=== PATIENT | female | born 1980 | race Caucasian/White ===

== ENCOUNTER 2019-11-06 19:13 | Emergency (ER) | payer SELFPAY ==
[2019-11-06] MEDS ORDERED: NA CHLORIDE 0.9% 1,000 ML ONE (20:30)
[2019-11-06] MEDS ORDERED: METOCLOPRAMIDE 10 MG/2mL INJ ONE (20:30)
[2019-11-06] MEDS ORDERED: DIPHENHYDRAMINE 50 MG/ML VIAL ONE (20:30)
[2019-11-06] MEDS ORDERED: dexAMETHasone 4 MG/ML VIAL ONE (21:06)
[2019-11-06] MEDS ORDERED: HALOPERIDOL LACT 5 MG/ML INJ ONE (21:07)
--- NOTE | 2019-11-06 21:42 | ER ---
Nurse's Notes [facility] Name: Denise Aguirre Age: 39 yrs Sex: Female : 1980 Arrival Date: 11/06/2019 Time: 19:17 Bed 19 Private MD: Diagnosis: Headache Presentation: 11/05 19:20 Chief complaint: Patient states: Migraine PAUL with nausea started today at noon. ll1 Coronavirus screen: Client denies travel out of the [place] in the last 14 days. At this time, the client does not indicate any symptoms associated with coronavirus-19. Ebola Screen: Patient denies travel to an Ebola-affected area in the 21 days before illness onset. Initial Sepsis Screen: Does the patient meet any 2 criteria? HR > 90 bpm. No. Patient's initial sepsis screen is negative. Risk Assessment: Do you want to hurt yourself or someone else? Patient reports no desire to harm self or others. Onset of symptoms was November 06, 2019. 19:20 Method Of Arrival: Ambulatory [facility] 19:20 Acuity: LEONARD 3 ll1 20:04 Initial Sepsis Screen: Does the patient have a suspected source of infection? No. wh Patient's initial sepsis screen is negative. EPILEPSY PHYSICIAN: 20:05 LMP 11/06/2019 Historical: - Allergies: 19:22 "No narcotics"; ll1 - PMHx: 19:22 Migraines; ll1 - PSHx: 19:22 Appendectomy; ll1 - Immunization history:: Flu vaccine is not up to date. - Social history:: Smoking status: Patient reports the use of cigarette tobacco products, smokes one-half pack cigarettes per day. Screenin:04 Abuse screen: Denies threats or abuse. Denies injuries from another. Nutritional screening: No deficits noted. Tuberculosis screening: No symptoms or risk factors identified. Fall Risk None identified. Assessment: 19:30 General: Appears in no apparent distress. Behavior is calm, cooperative, appropriate for age. Pain: Complains of pain in top of head and forehead Pain does not radiate. Pain currently is 9 out of 10 on a pain scale. Pain began 4 hours ago. Neuro: Level of Consciousness is awake, alert, obeys commands, Oriented to person, place, time, situation, Appropriate for age. Neuro: Reports headache frontal area. Cardiovascular: Capillary refill < 3 seconds. Respiratory: Airway is patent Respiratory effort is even, unlabored, Respiratory pattern is regular, symmetrical. GI: Abdomen is flat, non-distended. : No signs and/or symptoms were reported regarding the genitourinary system. EENT: No signs and/or symptoms were reported regarding the EENT system. Derm: Skin is intact, is healthy with good turgor, Skin is pink, warm \\T\\ dry. normal. Musculoskeletal: Circulation, motion, and sensation intact. 21:00 Reassessment: Patient appears in no apparent distress at this time. No changes from previously documented assessment. Patient and/or family updated on plan of care and expected duration. Pain level reassessed. Patient is alert, oriented x 3, equal unlabored respirations, skin warm/dry/pink. 22:00 Reassessment: Patient appears in no apparent distress at this time. Patient and/or family updated on plan of care and expected duration. Pain level reassessed. Patient is alert, oriented x 3, equal unlabored respirations, skin warm/dry/pink. Patient states feeling better. Patient states symptoms have improved. Vital Signs: 19:20 BP 108 / 69; Pulse 91; Resp 17; Temp 98.0; Pulse Ox 98% ; Pain 6/10; ll1 20:04 BP 102 / 72; Pulse 84; Resp 18; Pulse Ox 99% on R/A; 22:00 BP 107 / 76; Pulse 85; Resp 18; Pulse Ox 100% on R/A; [place] Coma Score: 21:39 Eye Response: spontaneous(4). Verbal Response: oriented(5). Motor Response: obeys mh7 commands(6). Total: 15. ED Course: 19:17 Patient arrived in ED. cl3 19:21 Triage completed. ll1 19:22 Arm band placed on Patient placed in an exam room, on a stretcher. ll1 19:27 Scout Stokes is Primary Nurse. 19:41 Tao Murcia MD is Attending Physician. mh7 20:04 Patient has correct armband on for positive identification. Bed in low position. Call light in reach. Side rails up X 1. Pulse ox on. NIBP on. 20:25 Inserted saline lock: 20 gauge in left upper arm, using aseptic technique. rr5 21:41 Doniphan, Peter, MD is Referral Physician. [facility] 21:52 IV discontinued, intact, bleeding controlled, No redness/swelling at site. Pressure ll1 dressing applied. 22:08 No provider procedures requiring assistance completed. Administered Medications: 20:30 Drug: NS 0.9% 1000 ml Route: IV; Rate: 1000 ml; Site: left upper arm; 22:09 Follow up: Response: No adverse reaction; IV Status: Completed infusion 20:30 Drug: Reglan 10 mg {Note: MIxed with NS 1 liter.} Route: IVP; Site: left upper arm; 22:08 Follow up: Response: No adverse reaction; Marked relief of symptoms 20:35 Drug: Benadryl 50 mg Route: IVP; Site: left upper arm; 22:08 Follow up: Response: No adverse reaction; Marked relief of symptoms 21:06 Drug: Decadron - Dexamethasone 10 mg Route: IVP; Site: left upper arm; 22:08 Follow up: Response: No adverse reaction Outcome: 21:42 Discharge ordered by . [facility] 22:08 Discharged to home ambulatory. 22:08 Condition: stable 22:08 Discharge instructions given to patient, Instructed on discharge instructions, follow up and referral plans. POC Demonstrated understanding of instructions, follow-up care, POC 22:09 Patient left the ED. Signatures: Scout Stokes Dani Ascencio RN RN rr5 Abner Hahn cl3 Erwin Hahn RN RN ll1 Tao Murcia MD MD [facility]
--- NOTE | 2019-11-06 21:43 | EDPHYS ---
Physician Documentation [facility] Name: Denise Aguirre Age: 39 yrs Sex: Female : 1980 Arrival Date: 11/06/2019 Time: 19:17 Bed 19 Private MD: ED Physician Tao Murcia HPI: 11/05 20:18 This 39 yrs old Female presents to ER via Ambulatory with complaints of mh7 Migraine, Nausea. 20:18 The patient complains of pain to the forehead. The patient describes the headache as mh7 intermittent, throbbing, waxing and waning. Onset: The symptoms/episode began/occurred today. Associated signs and symptoms: Pertinent positives: nausea, Photophobia Pertinent negatives: altered mental status, dizziness, fever, malaise, neck stiffness, paresthesias, rash, sinus congestion, sinus tenderness, vision changes, vision loss, vomiting, weakness, vertigo. Severity of symptoms: At its worst the pain was moderate, earlier today, in the emergency department the pain is unchanged. Headache History: The patient has had previous headaches and this one is similar to previous episodes. The symptoms are alleviated by nothing. the symptoms are aggravated by lights, noise, stress. The patient has experienced similar episodes in the past, chronically. 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 - Social history:: Smoking status: Patient reports the use of cigarette tobacco products, smokes one-half pack cigarettes per day. ROS: 20:18 Constitutional: Negative for fever, chills, and weight loss, Eyes: Negative for injury, mh7 pain, redness, and discharge, ENT: Negative for injury, pain, and discharge, Neck: Negative for injury, pain, and swelling, Cardiovascular: Negative for chest pain, palpitations, and edema, Respiratory: Negative for shortness of breath, cough, wheezing, and pleuritic chest pain, Back: Negative for injury and pain, : Negative for injury, bleeding, discharge, and swelling, MS/Extremity: Negative for injury and deformity, Skin: Negative for injury, rash, and discoloration, Psych: Negative for depression, anxiety, suicide ideation, homicidal ideation, and hallucinations, Allergy/Immunology: Negative for hives, rash, and allergies, Endocrine: Negative for neck swelling, polydipsia, polyuria, polyphagia, and marked weight changes, Hematologic/Lymphatic: Negative for swollen nodes, abnormal bleeding, and unusual bruising. Exam: 20:18 Head/Face: Normocephalic, atraumatic. Eyes: Pupils equal round and reactive to light, mh7 extra-ocular motions intact. Lids and lashes normal. Conjunctiva and sclera are non-icteric and not injected. Cornea within normal limits. Periorbital areas with no swelling, redness, or edema. Neck: Trachea midline, no thyromegaly or masses palpated, and no cervical lymphadenopathy. Supple, full range of motion without nuchal rigidity, or vertebral point tenderness. No Meningismus. Chest/axilla: Normal chest wall appearance and motion. Nontender with no deformity. No lesions are appreciated. Cardiovascular: Regular rate and rhythm with a normal S1 and S2. No gallops, murmurs, or rubs. Normal PMI, no JVD. No pulse deficits. Respiratory: Lungs have equal breath sounds bilaterally, clear to auscultation and percussion. No rales, rhonchi or wheezes noted. No increased work of breathing, no retractions or nasal flaring. Abdomen/GI: Soft, non-tender, with normal bowel sounds. No distension or tympany. No guarding or rebound. No evidence of tenderness throughout. Back: No spinal tenderness. No costovertebral tenderness. Full range of motion. Skin: Warm, dry with normal turgor. Normal color with no rashes, no lesions, and no evidence of cellulitis. MS/ Extremity: Pulses equal, no cyanosis. Neurovascular intact. Full, normal range of motion. Neuro: Awake and alert, GCS 15, oriented to person, place, time, and situation. Cranial nerves II-XII grossly intact. Motor strength 5/5 in all extremities. Sensory grossly intact. Cerebellar exam normal. Normal gait. Psych: Awake, alert, with orientation to person, place and time. Behavior, mood, and affect are within normal limits. 20:18 Constitutional: The patient appears in no acute distress, alert, awake, uncomfortable. Vital Signs: 19:20 BP 108 / 69; Pulse 91; Resp 17; Temp 98.0; Pulse Ox 98% ; Pain 6/10; ll1 20:04 BP 102 / 72; Pulse 84; Resp 18; Pulse Ox 99% on R/A; wh 22:00 BP 107 / 76; Pulse 85; Resp 18; Pulse Ox 100% on R/A; [place] Coma Score: 21:39 Eye Response: spontaneous(4). Verbal Response: oriented(5). Motor Response: obeys [facility] commands(6). Total: 15. MDM: 20:01 Patient medically screened. [facility] 21:39 Differential diagnosis: cluster headache, migraine, tension headache. Data reviewed: [facility] vital signs, nurses notes. Data interpreted: Pulse oximetry: on room air is 99 %. Interpretation: normal. Counseling: I had a detailed discussion with the patient and/or guardian regarding: the historical points, exam findings, and any diagnostic results supporting the discharge/admit diagnosis, the need for outpatient follow up, a neurologist, to return to the emergency department if symptoms worsen or persist or if there are any questions or concerns that arise at home. Response to treatment: the patient's symptoms have resolved after treatment, the patient's blood pressure is in an acceptable range, mental status has returned to baseline, the patient no longer shows bradycardia, the patient is not short of breath, the patient is not tachycardic, the patient's pain is gone, the patient's temperature has normalized. Administered Medications: 20:30 Drug: NS 0.9% 1000 ml Route: IV; Rate: 1000 ml; Site: left upper arm; 22:09 Follow up: Response: No adverse reaction; IV Status: Completed infusion 20:30 Drug: Reglan 10 mg {Note: MIxed with NS 1 liter.} Route: IVP; Site: left upper arm; 22:08 Follow up: Response: No adverse reaction; Marked relief of symptoms 20:35 Drug: Benadryl 50 mg Route: IVP; Site: left upper arm; 22:08 Follow up: Response: No adverse reaction; Marked relief of symptoms 21:06 Drug: Decadron - Dexamethasone 10 mg Route: IVP; Site: left upper arm; 22:08 Follow up: Response: No adverse reaction Disposition: 11/06/19 21:42 Discharged to Home. Impression: Headache. - Condition is Stable. - Discharge Instructions: Migraine Headache, [id number]. - Medication Reconciliation Form, Thank You Letter, Antibiotic Education, Prescription Opioid Use form. - Follow up: Private Physician; When: 1 - 2 days; Reason: Worsening of condition, Recheck today's complaints, Continuance of care, Re-evaluation by your physician. Follow up: Peter Cordero MD; When: 1 - 2 days; Reason: Worsening of condition, Recheck today's complaints. - Problem is an acute exacerbation. - Symptoms are resolved. Signatures: Scout Stokes Lynsay RN RN ll1 Tao Murcia MD MD mh7 Corrections: (The following items were deleted from the chart) 22:09 21:42 11/06/2019 21:42 Discharged to Home. Impression: Headache. Condition is Stable. wh Forms are Medication Reconciliation Form, Thank You Letter, Antibiotic Education, Prescription Opioid Use. Follow up: Private Physician; When: 1 - 2 days; Reason: Worsening of condition, Recheck today's complaints, Continuance of care, Re-evaluation by your physician. Follow up: Peter Cordero; When: 1 - 2 days; Reason: Worsening of condition, Recheck today's complaints. Problem is an acute exacerbation. Symptoms are resolved. mh7
[2019-11-06 22:21] VITALS: TEMP 98
[2019-11-06 22:25] VITALS: BP 107/76; O2SAT 100
== END 2019-11-06 22:09 | disposition home or self-care (01) ==
LOC: ER 19:13
DX: R51 Headache (principal); F17.210 Nicotine dependence, cigarettes, uncomplicated; Z88.5 Allergy status to narcotic agent
CPT/HCPCS: 96361; 96374; 96375; 99283; J1200; J1630; J2765; J7030